=== PATIENT | male | born 1955 | race Asian ===

== ENCOUNTER 2017-04-27 22:08 | Emergency (ER) | payer OTHER ==
[2017-04-27 23:53] VITALS: BP 148/89
== END 2017-04-28 01:00 | disposition home or self-care (01) ==
LOC: ED 22:08
DX: R13.10 Dysphagia, unspecified (principal); I10 Essential (primary) hypertension; E11.9 Type 2 diabetes mellitus without complications; Z79.84 Long term (current) use of oral hypoglycemic drugs
CPT/HCPCS: J1610; J2060; J3490

== ENCOUNTER → 2017-05-07 | Outpatient (CLI) | payer OTHER ==
[2017-05-07 08:27] LABS: BASOPHIL % 0.6 % (0-2); PLATELET COUNT 246 x10^3mcL (130-400); RED CELL DISTRIBUTION WIDTH 12.8 % (11.5-14.5)
[2017-05-07 08:52] LABS: ALBUMIN 3.8 g/dL (3.4-5.0); ALKALINE PHOSPHATASE 69 U/L (46-116); ALT/SGPT 56 U/L (16-63); AST/SGOT 34 U/L (15-37); BILIRUBIN TOTAL 0.56 mg/dL (0.20-1.00); CARBON DIOXIDE 26.6 mmol/L (21-32); CHLORIDE SERUM 95 mmol/L (98-107); CREATININE SERUM 1.2 mg/dL (0.7-1.3); GFR1 > 60 mL/min; GLUCOSE SERUM 185 mg/dL (74-106); HDL CHOLESTEROL 42 mg/dL (40-60); POTASSIUM SERUM 5.2 mmol/L (3.5-5.1); SODIUM SERUM 130 mmol/L (136-145); T4(THYROXINE) 8.6 ug/dL (4.7-13.3); TOTAL PROTEIN, SERUM 7.4 g/dL (6.4-8.2); TRIGLYCERIDES 114 mg/dL (<150)
[2017-05-07 08:56] LABS: C REACTIVE PROTEIN < 0.2 mg/dL (<=0.9); CHOLESTEROL 120 mg/dL (<200); CHOLESTEROL/HDL RATIO 2.9
== END | disposition home or self-care (01) ==
LOC: LB 07:47
PROVIDERS: Internal Medicine Cardiovascular Disease
DX: E11.9 Type 2 diabetes mellitus without complications (principal)
CPT/HCPCS: 84153